=== PATIENT | female | born 1950 | race Caucasian/White ===

== ENCOUNTER 2024-10-07 15:28 | Inpatient (IN) | payer MEDICARE ==
[~2024-10-07] VITALS: Ht 170.2 cm; Wt 73.0 kg
--- NOTE | 2024-10-07 16:33 | ERN ---
General Chief Complaint: Mechanical Fall Stated Complaint: UNABLE TO MOVE/FELL Source: patient History of Present Illness Initial Comments Patient is a 74-year-old female with no pertinent medical history who presented to the emergency department after a fall at home about 7 days ago. She stated that she was walking around her home when she tripped and fell on her right side. She denies any loss of consciousness, dizziness or preceding symptoms. Since the fall, she has had intermittent pain to her right hip. States the pain is worse with movement and weight-bearing. She denies any head trauma, loss of consciousness, or seizure activity. No numbness, weakness or bowel or bladder incontinence. Denies any chest pain shortness of breath, or palpitations. Allergies: Coded Allergies: No Known Drug Allergies (Unverified Allergy, Unknown, 10/07/24) Past Medical History Past Medical History: No Pertinent History Past Surgical History: None ROS Dictation Constitutional: No appetite loss, No fevers, chills , No night sweats, No weakness, fatigue Eye: No vision change, No redness, pain or discharge ENT: No hearing loss, ear pain or discharge, No nose bleeds, No sore throat, Neck: No swelling. pain or stiffness Respiratory: No cough, shortness of breath, wheezing Cardiovascular: No chest pain,, palpitations, dyspnea, No edema Gastrointestinal: No abdominal pain, No nausea, vomiting, No diarrhea, constipation Genitourinary: No painful urination, No blood in urine, No urinary incontinence, No frequency or urgency Musculoskeletal: Right hip pain Neurological: No numbness, tingling, No weakness, tremors or seizures Psychiatric: : No depression, No anxiety, No sleep disturbance, No Memory changes Lymphatic: No easy bruising, No bleeding tendencies , No swollen lymph nodes A 13-point Review of Systems was assessed, all of which are negative except for HPI or as indicated above. Physical Exam Physical Exam Dictation General: Alert & Oriented, No acute distress. EENT: No conjunctival redness or discharge noted Tympanic membranes are clear, Normal hearing, Oral mucosa is moist, No pharyngeal erythema, No nasal discharge, No oral lesions. Neck: Non-tender, No jugular vein distention, No lymphadenopathy, No thyromegaly, Supple. Respiratory: Lungs are clear to auscultation, Respirations are non-labored, Breath sounds are equal, No chest wall tenderness, _. Cardiovascular: Normal rate, Normal rhythm, No murmur, Good pulses equal in all extremities, Normal peripheral perfusion, No edema. Gastrointestinal: Soft, Non-tender, Non-distended, Normal bowel sounds, No organomegaly, _. Musculoskeletal: Normal range of motion, Normal strength, No tenderness, No swelling, No deformity, Integumentary: Warm, Dry, [place], Intact, No pallor, No rash. Neurologic: Alert, Oriented x4, Normal sensory, No focal defects Psychiatric: Cooperative, Appropriate mood & affect, Normal judgement, Non- suicidal. Results EKG/XRAY/US/CT/MRI X-RAY Comment PATIENT: HERMINIA HUANG MR#: [id number] : 1950 SEX: F AGE: 74 LOCATION: [facility] ORDER 51 STATUS: [facility] REPORT#: [id number] SERVICE 49 REASON: right hip pain ORDERING PHYSICIAN: MALOU ASHTON MD PROCEDURE: HIPS B 2V - HIP BILAT 2VW HIP BILAT 2VW HISTORY: Hip pain COMPARISON: None TECHNIQUE: 2 images of bilateral hips were obtained. FINDINGS: There is no acute displaced fracture or dislocation. Bilateral hip joint space narrowing is seen. Degenerative changes are seen. IMPRESSION: 1. Findings as described above. DICTATED BY: WENDY GRIGGS MD DATE: 10/07/241721 ELECTRONICALLY SIGNED BY: WENDY GRIGGS MD DATE: 10/07/241725 [facility] Potential differential diagnoses include: *Osteoarthritis * Failure to thrive *Fall Assessment: I will order an xray of bilateral hips in order to rule out any fractures or dislocation and we will administer medications according to the patient's complaint. .. I will re-evaluate the patient after treatment and diagnostic exams have returned to determine whether they require further testing, can be safely discharged home, or need admission for further treatment and evaluation. Given the social determinants of health affecting care, including literacy, access to medical care, prescription drug management, and [id number] drugs, I will ensure that treatment plans are tailored accordingly. Revaluation : Patient is alert and oriented. States she feels a lot better Xray of hips shows that there is no acute displaced fracture or dislocation. Bilateral hip joint space narrowing is seen. Degenerative changes also seen.. Disposition:Patient was due to be discharged, however patient's family refused to pick her up. Spoke to ROADS AND PARKING LOTS SWEEPER OPERATOR Drea for the hospitalist group, will admit the patient for failure to thrive. Attestation: Patient's case was discussed with the ER MD. Reviewed the documentation, medical decision making and treatment plan. Agrees with the findings and plan of care. ED Course Orders Procedure Category Date Status Time Hip Bilat 2vw RAD 10/07/24 Resulted 15:50 *General Dc DS 10/07/24 Transmitted Instructions 18:11 Vital Signs Date Time Temp Pulse Resp B/P (MAP) Pulse Ox O2 Delivery O2 Flow Rate FiO2 10/07/24 17:03 98.2 61 20 122/102 99 Room Air* 0 21 10/07/24 15:32 98.2 61 20 122/102 99 Room Air 0 DX & DISP Disposition: Inpatient Departure Impression: Primary Impression: Osteoarthritis Additional Impression: Failure to thrive Ruled Out: Degenerative arthritis, Fall Condition: Stable Referrals: SELF,REFERRAL (PCP) I WAS PRESENT AND PARTICIPATED IN THE CARE OF THIS PATIENT ALONGSIDE WITH THE RESIDENT PHYSICIAN. I HAVE REVIEWED AND PERSONALLY MADE AND APPROVED THE MANAGEMENT PLAN THAT IS DOCUMENTED IN THE NOTE BY MYSELF WITH THE RESIDENT PHYSICIAN. I ACKNOWLEDGED FOR RESPONSIBILITY FOR THE PATIENT'S MANAGEMENT PLAN. MALOU ASHTON MD Oct 07, 2024 16:33 MALLORIE CHAVEZ MD Oct 10, 2024 08:26
--- NOTE | 2024-10-07 17:26 | HMCIMG ---
HIP BILAT 2VW HISTORY: Hip pain COMPARISON: None TECHNIQUE: 2 images of bilateral hips were obtained. FINDINGS: There is no acute displaced fracture or dislocation. Bilateral hip joint space narrowing is seen. Degenerative changes are seen. IMPRESSION: 1. Findings as described above.
--- NOTE | 2024-10-07 19:00 | NUR ---
REPORT CALLED TO IFEANYI APS ID [id number], REPORT ID [id number] BROTHER ROSA HUANG [facility] [phone] LISA WALTONROMIE [facility] [phone] PT [id number] [facility] [id number] PT LEFT IN ER AND SHMUEL GONZALEZ STATED SHE WAS NOT WILLING TO TAKE PT BACK WITH HER, BROTHER ROSA CALLED ER AND ALSO STATED HE DID NOT WANT TO DIAMOND SAW OPERATOR PT
--- NOTE | 2024-10-07 19:00 | NUR ---
PATIENT BROUGHT TO ED 1
--- NOTE | 2024-10-07 19:07 | NUR ---
NELA JIMÉNEZ CELLAR SUPERVISOR WITH ADMITTING GROUP AT [facility] TO EVALUATE PATIENT
--- NOTE | 2024-10-07 19:46 | HP ---
[facility] HISTORY AND PHYSICAL Date of Service: Oct 07, 2024 Time of Service: 19:17 PCP:Self Referral HISTORY OF PRESENT ILLNESS: This is a 74 year old female with no pertinent medical and surgical history who lives alone and was brought by family to the ED for evaluation of fall at home which happened 1 week ago.Patient is a reliable historian.Patient reports she fell last Monday 1 week ago as she was about to sit in a box and she miscalculated it she end up falling on her buttocks and shewas not able to move to get up because of pain .She has been outside her house for the past 5 days without food or drink because she has nobody at home and her phone ran out of battery and there was no means of communication until her brother showed up and checked on her she said and helped her get up.Patient reports she has right hip pain because of the recent fall but did not seek medical help instead she uses the wheelchair her brother gave her she said.Until today she decided to be checked .Upon ER arrival ,patient underwent a bilateral hip Xray and result revealed no acute displaced fracture or dislocation. Lateral hip joint space narrowing is seen. Degenerative changes are seen and patient was supposed to be discharged home however family refused to pick her up and reportedly patient has a poor living condition.Adult protective service was contacted per primary nurse and ER MD called and recommended to admit the patient. Seen and examined patient in the ER awake,alert and coherent.Patient complained of soreness on her right hip.Patient denies fever,chills,nausea,vomiting ,chest pain,palpitation,cough and shortness of breath.Patient reports no loss of consciousness,no numbness,no seizure,no dizziness and no headache.Patient is able to follow commands and moves all extremities. Latest vital signs temperature 98.2, heart rate 61, respiration 20, blood pressure 122/102 and saturation 99% on room air.No labs taken at this time.Will admit patient for further medical management. REVIEW OF SYSTEMS CONSTITUTIONAL: Denies fevers, chills, or night sweats. No unintentional weight loss reported. NEUROLOGICAL: Denies headache, amaurosis fugax, motor weakness, sensory deficit, vertigo/spinning sensation, gait abnormalities, or tremors. ENT: No hearing loss, otalgia, otorrhea, rhinitis, rhinorrhea, hoarseness, or sore throat. CARDIOVASCULAR: Denies any exertional angina, dyspnea on exertion, orthopnea, paroxysmal nocturnal dyspnea, palpitations, life-threatening arrhythmias, claudication. PULMONARY: Denies any shortness of breath, cough, phlegm/sputum, hemoptysis, pleuritic chest pain. SLEEP: Denies morning headaches, daytime somnolence or napping. Denies difficulty falling asleep, staying asleep, waking from sleep. Denies knowledge of snoring. GASTROINTESTINAL: Denies any type of dysphagia to either liquids or solids. Denies nausea, vomiting, pyrosis, early satiety, abdominal pain, diarrhea, constipation, or changes in stool consistency or caliber. Denies coffee-ground emesis, hematemesis, hematochezia, or melanotic stools. GENITOURINARY: Denies frequency, urgency, nocturia, hematuria or incontinence (Storage/Irritative symptoms.) Low urinary stream, straining to void, urinary intermittency or hesitancy, splitting of the voiding stream, terminal dribbling. ENDOCRINOLOGIC: Denies polyuria, polydipsia, polyphagia or heat/cold intolerances. HEMATOLOGIC: Denies thrombophilia/previous clots, or coagulopathy/bleeding disorders. ONCOLOGIC: Denies personal history of malignancy. DERMATOLOGIC: Denies rashes or pruritus. PSYCHIATRIC: Denies any suicidal or homicidal ideation. Denies hallucinations. PAST MEDICAL HISTORY: [ Patient denies ] PAST SURGICAL HISTORY: [ Patient denies ] PAST SOCIAL HISTORY: [ Patient lives alone. Patient denies alcohol tobacco and recreational drug use ] FAMILY HISTORY: [ Noncontributory ] Coded Allergies: No Known Drug Allergies (Unverified Allergy, Unknown, 10/07/24) PHYSICAL EXAM GENERAL APPEARANCE: The patient is awake, alert, and oriented, in no acute cardiopulmonary distress. NEUROLOGICAL: Cranial nerves II-XII grossly intact. Motor is 5/5 in bilateral upper and lower extremities proximal to distal. No sensory deficits. HEENT: Face is symmetric. Pupils are equal and reactive. Extraocular movements are intact. NECK: Supple. No JVD. No thyromegaly. No submental, submandibular, pre- /postauricular, occipital or supraclavicular lymphadenopathy. CHEST: Normal chest expansion. No Telemetry. LUNGS: Absence of any rales, rhonchi or any wheezing. CARDIOVASCULAR: Regular. S1 and S2 normal. No appreciable rubs, murmurs or gallops. ABDOMEN: Soft, nontender, and nondistended. There is no rebound, voluntary guarding, or rigidity. : Deferred. No [place]. EXTREMITIES: Non-edematous and not cyanotic. No clubbing. Good capillary refill. SKIN: No skin breakdown. Vital Sign (Last 24 Hours) 10/07/24 17:03 Temp 98.2 Pulse 61 Resp 20 B/P (MAP) 122/102 Pulse Ox 99 O2 Delivery Room Air* O2 Flow Rate 0 FiO2 21 LABS: DIAGNOSTICS / RADIOLOGY: [ ] ASSESSMENT: Failure to thrive POA Functional debility POA Status post fall at home POA Right hip pain POA Possible osteoarthritis POA PLAN: We will admit patient in medical surgical We will start on heart healthy We will start on Famotidine 20 mg p.o. bid for GI prophylaxis We will replace electrolytes as needed per protocol We will add prn medication for fever,pain,cough and nausea We will request case management consultation We will request PT eval and treat service We will request labs in am Further orders to follow depending on above results Case discussed with attending physician and came up with above treatment and plan of care. ADVANCED CARE PLANNING 1. Which of the following were discussed? Hospice Care - No Therapeutic options - Yes Advance Directives - No Other discussions - 2. Discussed with who? Patient 3. Voluntary nature of this service was explained to the patient? Yes 4. Amount of time spent - 20 5. Reviewed by Physician? (if this service was performed by NPP) Yes Patient seen and examined by me. Agree with note by FRUIT TRIMMER SEE ADDITIONAL ORDERS PER CHART DISCUSSED WITH NURSING STAFF RAMONE WISE SHIPPING AND RECEIVING SUPERVISOR Oct 07, 2024 19:46
[2024-10-07] MEDS ORDERED: acetaMINOPHEN 325 MG TAB PO PRN ×2 (20:00)
[2024-10-07] MEDS ORDERED: ondanSETRON 4MG INJ IV PRN (20:00)
--- NOTE | 2024-10-07 20:50 | NUR ---
PATIENT REPORTS SHE DOES NOT TAKE ANY MEDICATIONS
[2024-10-07] MEDS: FAMOTIDINE 20MG TAB PO SCH (20:56)
[2024-10-07 21:01] LABS: BASOPHILS # (AUTO) 0.04 K/uL (0.00-0.20); BASOPHILS % (AUTO) 0.4 % (0.0-5.0); EOSINOPHILS # (AUTO) 0.09 K/uL (0.00-0.70); EOSINOPHILS % (AUTO) 0.9 % (0.0-8.0); HEMATOCRIT 37.5 % (36-48); IMMATURE GRANULOCYTE ABSOLUTE 0.03 K/uL (0-1); LYMPHOCYTES % (AUTO) 20.9 % (21.0-51.0); MEAN CORPUSCULAR HEMOGLOBIN 32.8 pg (27.0-33.0); MEAN CORPUSCULAR HGB CONC 33.6 g/dL (32.0-36.0); MEAN CORPUSCULAR VOLUME 97.7 fL (79-99); MONOCYTES # (AUTO) 1.1 K/uL (0.1-1.0); MONOCYTES % (AUTO) 11.4 % (3.0-13.0); NEUTROPHILS # (AUTO) 6.3 K/uL (1.8-7.7); NEUTROPHILS % (AUTO) 66.1 % (40.0-77.0); PLATELET COUNT (AUTO) 177 K/uL (130-400); RED BLOOD CELL COUNT(AUTO) 3.84 MIL/uL (4.00-5.50); RED CELL DISTRIBUTION WIDTH 13.6 % (11.0-15.5); WHITE BLOOD COUNT (AUTO) 9.6 K/uL (4.8-10.8)
[2024-10-07 21:12] LABS: CREATININE 1.1 mg/dL (0.5-1.0); POTASSIUM 3.3 mmol/L (3.5-5.1)
[2024-10-07 21:17] LABS: MAGNESIUM 1.8 mg/dL (1.80-2.40)
[2024-10-07 22:44] VITALS: BP 148/62; PULSE 74; RESP 18; TEMP 98.9
[2024-10-07 23:30] VITALS: O2SAT 18
[2024-10-08] VITALS (8 sets, daily range): BP systolic 98–133; BP diastolic 47–82; PULSE 65–85; RESP 17–18; TEMP 98–99.3; O2SAT 97–99
[2024-10-08 05:48] LABS: BASOPHILS # (AUTO) 0.06 K/uL (0.00-0.20); BASOPHILS % (AUTO) 0.8 % (0.0-5.0); EOSINOPHILS # (AUTO) 0.25 K/uL (0.00-0.70); EOSINOPHILS % (AUTO) 3.2 % (0.0-8.0); HEMATOCRIT 33.2 % (36-48); IMMATURE GRANULOCYTE ABSOLUTE 0.03 K/uL (0-1); LYMPHOCYTES # (AUTO) 2.9 K/uL (1.0-4.8); LYMPHOCYTES % (AUTO) 37.2 % (21.0-51.0); MEAN CORPUSCULAR HEMOGLOBIN 32.4 pg (27.0-33.0); MEAN CORPUSCULAR HGB CONC 33.1 g/dL (32.0-36.0); MEAN CORPUSCULAR VOLUME 97.6 fL (79-99); MONOCYTES % (AUTO) 13.1 % (3.0-13.0); NEUTROPHILS # (AUTO) 3.5 K/uL (1.8-7.7); NEUTROPHILS % (AUTO) 45.3 % (40.0-77.0); PLATELET COUNT (AUTO) 141 K/uL (130-400); RED CELL DISTRIBUTION WIDTH 13.7 % (11.0-15.5); WHITE BLOOD COUNT (AUTO) 7.8 K/uL (4.8-10.8)
[2024-10-08 06:05] LABS: ALBUMIN 2.7 g/dL (3.5-5.0); BILIRUBIN,TOTAL 0.4 mg/dL (0.2-1.0); CREATININE 0.9 mg/dL (0.5-1.0); MAGNESIUM 1.8 mg/dL (1.80-2.40); TOTAL PROTEIN, SERUM 6.1 g/dL (6.0-8.3)
[2024-10-08 06:56] LABS: ERYTHROCYTE SEDIMENTATION RATE 25 MM/HR (0-30)
--- NOTE | 2024-10-08 09:57 | PN ---
[facility] PROGRESS NOTE Date of Service: Oct 08, 2024 Time of Service: 09:47 SUBJECTIVE: [ ] Patient seen and examined in room 425 Today at bedside evaluation patient is found alert and oriented x3. Continue fall precautions. Latest vital signs and labs are stable. Patient is a start working with physical therapy for safe discharge planning. Consulting dietitian in reference to severe protein malnutrition. Discussed with primary nurse REVIEW OF SYSTEMS CONSTITUTIONAL: Denies fevers, chills, or night sweats. No unintentional weight loss reported. NEUROLOGICAL: Denies headache, amaurosis fugax, motor weakness, sensory deficit, vertigo/spinning sensation, gait abnormalities, or tremors. ENT: No hearing loss, otalgia, otorrhea, rhinitis, rhinorrhea, hoarseness, or sore throat. CARDIOVASCULAR: Denies any exertional angina, dyspnea on exertion, orthopnea, paroxysmal nocturnal dyspnea, palpitations, life-threatening arrhythmias, claudication. PULMONARY: Denies any shortness of breath, cough, phlegm/sputum, hemoptysis, pleuritic chest pain. SLEEP: Denies morning headaches, daytime somnolence or napping. Denies difficulty falling asleep, staying asleep, waking from sleep. Denies knowledge of snoring. GASTROINTESTINAL: Denies any type of dysphagia to either liquids or solids. Denies nausea, vomiting, pyrosis, early satiety, abdominal pain, diarrhea, constipation, or changes in stool consistency or caliber. Denies coffee-ground emesis, hematemesis, hematochezia, or melanotic stools. GENITOURINARY: Denies frequency, urgency, nocturia, hematuria or incontinence (Storage/Irritative symptoms.) Low urinary stream, straining to void, urinary intermittency or hesitancy, splitting of the voiding stream, terminal dribbling. ENDOCRINOLOGIC: Denies polyuria, polydipsia, polyphagia or heat/cold intolerances. HEMATOLOGIC: Denies thrombophilia/previous clots, or coagulopathy/bleeding disorders. ONCOLOGIC: Denies personal history of malignancy. DERMATOLOGIC: Denies rashes or pruritus. PSYCHIATRIC: Denies any suicidal or homicidal ideation. Denies hallucinations. PHYSICAL EXAM GENERAL APPEARANCE: The patient is awake, alert, and oriented, in no acute cardiopulmonary distress. NEUROLOGICAL: Cranial nerves II-XII grossly intact. Motor is 5/5 in bilateral upper and lower extremities proximal to distal. No sensory deficits. HEENT: Face is symmetric. Pupils are equal and reactive. Extraocular movements are intact. NECK: Supple. No JVD. No thyromegaly. No submental, submandibular, pre- /postauricular, occipital or supraclavicular lymphadenopathy. CHEST: Normal chest expansion. No Telemetry. LUNGS: Absence of any rales, rhonchi or any wheezing. CARDIOVASCULAR: Regular. S1 and S2 normal. No appreciable rubs, murmurs or gallops. ABDOMEN: Soft, nontender, and nondistended. There is no rebound, voluntary guarding, or rigidity. : Deferred. No [place]. EXTREMITIES: Non-edematous and not cyanotic. No clubbing. Good capillary refill. SKIN: No skin breakdown. Vital Signs (last 8hr) Date Time Temp Pulse Resp B/P (MAP) Pulse Ox O2 Delivery O2 Flow Rate FiO2 10/08/24 07:30 98.1 65 18 133/50 99 Room Air 21 10/08/24 04:25 98.4 76 18 106/64 99 Room Air 21 LABS: Laboratory: Test 10/08/24 05:30 10/07/24 20:30 Range/Units White Blood Count 7.8 4.8-10.8 K/uL Red Blood Count 3.40 L 4.00-5.50 MIL/uL Hemoglobin 11.0 L 12.0-16.0 g/dL Hematocrit 33.2 L 36-48 % Mean Corpuscular Volume 97.6 79-99 fL Mean Corpuscular Hemoglobin 32.4 27.0-33.0 pg Mean Corpuscular Hemoglobin Concent 33.1 32.0-36.0 g/dL Red Cell Distribution Width 13.7 11.0-15.5 % Platelet Count 141 130-400 K/uL Mean Platelet Volume 10.8 H 7.5-10.5 fL Immature Granulocyte % (Auto) 0.4 0-1 % Neutrophils (%) (Auto) 45.3 40.0-77.0 % Lymphocytes (%) (Auto) 37.2 21.0-51.0 % Monocytes (%) (Auto) 13.1 H 3.0-13.0 % Eosinophils (%) (Auto) 3.2 0.0-8.0 % Basophils (%) (Auto) 0.8 0.0-5.0 % Neutrophils # (Auto) 3.5 1.8-7.7 K/uL Lymphocytes # (Auto) 2.9 1.0-4.8 K/uL Monocytes # (Auto) 1.0 0.1-1.0 K/uL Eosinophils # (Auto) 0.25 0.00-0.70 K/uL Basophils # (Auto) 0.06 0.00-0.20 K/uL Absolute Immature Granulocyte (auto 0.03 0-1 K/uL Nucleated Red Blood Cells 0.0 0.0-0.19 % Erythrocyte Sedimentation Rate 25 0-30 MM/HR Sodium Level 140 136-145 mmol/L Potassium Level 4.0 3.5-5.1 mmol/L Chloride Level 103 101-111 mmol/L Carbon Dioxide Level 35 H 21-32 mmol/L Blood Urea Nitrogen 19 H 7-18 mg/dL Creatinine 0.9 0.5-1.0 mg/dL Glomerular Filtration Rate Calc 67 >90 mL/min Random Glucose 90 70-105 mg/dL Total Calcium 8.6 8.5-10.1 mg/dL Magnesium Level 1.80 1.80-2.40 mg/dL Total Bilirubin 0.4 0.2-1.0 mg/dL Aspartate Amino Transf (AST/SGOT) 20 10-37 U/L Alanine Aminotransferase (ALT/SGPT) 20 12-78 U/L Alkaline Phosphatase 59 50-136 U/L Total Protein 6.1 6.0-8.3 g/dL Albumin 2.7 L 3.5-5.0 g/dL Total Creatine Kinase 112 21-232 U/L Current Medications Medications (Trade) Dose Ordered Sig/Davon Route PRN Reason Start Time Stop Time Status Last Admin Dose Admin Acetaminophen (TYLenol 325MG TAB) 650 mg Q4H PRN PO MILD PAIN (1-3) 10/07/24 20:00 11/06/24 19:59 Acetaminophen (TYLenol 325MG TAB) 650 mg Q6H PRN PO TEMPERATURE GREATER THAN 101.5 10/07/24 20:00 11/06/24 19:59 Famotidine (Pepcid 20mg Tab) 20 mg BID PO 10/07/24 21:00 11/06/24 20:59 10/07/24 20:56 20 MG Ondansetron HCl (zoFRAN 4MG INJ) 4 mg Q6H PRN IV NAUSEA/VOMITING 10/07/24 20:00 11/06/24 19:59 DIAGNOSTICS / RADIOLOGY: [ ] ASSESSMENT: Intractable right hip pain s/p fall, POA Functional decline secondary to above, POA Severe protein calorie malnutrition, POA Debility/frailty/deconditioning Failure to thrive POA osteoarthritis, POA PLAN: Continue admission in the medical-surgical floor Continue heart healthy diet Consulting Physical therapy for safe discharge planning In reference to severe protein calorie malnutrition: Consulting dietitian Monitoring replace electrolytes per hospital protocol Case management consulted for discharge planning Pending urinalysis Monitor a.m. labs PRN Treatment - Add when necessary meds for nausea, vomiting, pain, constipation, insomnia. DVT/GI prophylaxis- Continue Lovenox and famotidine at current doses. Full CODE STATUS This document was generated in part using voice recognition software, occasional wrong word or sound alike substitutions may have occurred due to the inherent limitations of voice recognition software. Read the chart carefully and recognize using context, where the substitutions have occurred. Although every effort was made to edit the content, regulatory manager and typing errors may occur This case was discussed with Dr. Sims and above plan was formulated ATTESTATION BY PHYSICIAN I have seen and examined the patient. I reviewed the documentation, medical decision making, and treatment plan as noted by the mid-level provider above. I agree with the findings and plan of care. Heather Sims MD, MARCELO O APRN Oct 08, 2024 09:57
[2024-10-08] MEDS ORDERED: hydrALAZine 20MG/ML VIAL IV PRN (10:00)
[2024-10-08] MEDS ORDERED: LACTULOSE 20 GM/30 ML UDCUP PO PRN (10:00)
--- NOTE | 2024-10-08 18:27 | NUR ---
DCP Pt awake, alert, oriented x3 lives alone in her house, never . pt verbalized has a cane, has not had home health in the past or been to longterm facility. Pt verbalized she spoke with APS farmworker cranberry Ashley Givens [phone]. Anticipates discharge is SNF vs Home. Order received to work on longterm facility for physical therapy pt would not sign medical release of information until tomorrow morning 10/09/2024 Addendum: 10/08/24 at 1831 by CELIO BERGMAN RN CM Amended: Links added.
[2024-10-09 03:26] VITALS: BP 113/62; PULSE 66; RESP 17; TEMP 98.6
[2024-10-09 06:12] LABS: BASOPHILS # (AUTO) 0.05 K/uL (0.00-0.20); BASOPHILS % (AUTO) 0.8 % (0.0-5.0); EOSINOPHILS # (AUTO) 0.21 K/uL (0.00-0.70); EOSINOPHILS % (AUTO) 3.2 % (0.0-8.0); HEMATOCRIT 33.7 % (36-48); IMMATURE GRANULOCYTE ABSOLUTE 0.02 K/uL (0-1); LYMPHOCYTES # (AUTO) 2.4 K/uL (1.0-4.8); LYMPHOCYTES % (AUTO) 36.6 % (21.0-51.0); MEAN CORPUSCULAR HGB CONC 32.9 g/dL (32.0-36.0); MEAN CORPUSCULAR VOLUME 97.1 fL (79-99); MONOCYTES # (AUTO) 0.9 K/uL (0.1-1.0); MONOCYTES % (AUTO) 13.7 % (3.0-13.0); NEUTROPHILS % (AUTO) 45.4 % (40.0-77.0); PLATELET COUNT (AUTO) 145 K/uL (130-400); RED BLOOD CELL COUNT(AUTO) 3.47 MIL/uL (4.00-5.50); RED CELL DISTRIBUTION WIDTH 13.5 % (11.0-15.5); WHITE BLOOD COUNT (AUTO) 6.6 K/uL (4.8-10.8)
[2024-10-09 06:22] LABS: CREATININE 0.8 mg/dL (0.5-1.0); POTASSIUM 3.7 mmol/L (3.5-5.1)
[2024-10-09 07:30] VITALS: BP 96/51; PULSE 78; RESP 20; TEMP 98
[2024-10-09 07:40] VITALS: O2SAT 99
--- NOTE | 2024-10-09 08:22 | PN ---
[facility] PROGRESS NOTE Date of Service: Oct 09, 2024 Time of Service: 08:21 SUBJECTIVE: [ ] 74-year-old female with no significant past medical history was admitted to the telemetry floor with diagnosis of intractable right hip pain s/p fall, functional decline and severe protein calorie malnutrition. Hip x-rays are not showing any acute fractures or dislocations. Physical therapy was consulted for safe discharge planning. Patient lives at home alone. Today on bedside evaluation patient was found awake alert and oriented x 3. Latest vitals are stable. Labs are stable. Patient continues to work with physical therapy. Using walker for mobility. Continue fall precautions. Continue heart healthy diet. Case management is coordinating for SNF placement for continued physical therapy. Discussed with primary nurse REVIEW OF SYSTEMS CONSTITUTIONAL: Denies fevers, chills, or night sweats. No unintentional weight loss reported. NEUROLOGICAL: Denies headache, amaurosis fugax, motor weakness, sensory deficit, vertigo/spinning sensation, gait abnormalities, or tremors. ENT: No hearing loss, otalgia, otorrhea, rhinitis, rhinorrhea, hoarseness, or sore throat. CARDIOVASCULAR: Denies any exertional angina, dyspnea on exertion, orthopnea, paroxysmal nocturnal dyspnea, palpitations, life-threatening arrhythmias, claudication. PULMONARY: Denies any shortness of breath, cough, phlegm/sputum, hemoptysis, pleuritic chest pain. SLEEP: Denies morning headaches, daytime somnolence or napping. Denies difficulty falling asleep, staying asleep, waking from sleep. Denies knowledge of snoring. GASTROINTESTINAL: Denies any type of dysphagia to either liquids or solids. Denies nausea, vomiting, pyrosis, early satiety, abdominal pain, diarrhea, constipation, or changes in stool consistency or caliber. Denies coffee-ground emesis, hematemesis, hematochezia, or melanotic stools. GENITOURINARY: Denies frequency, urgency, nocturia, hematuria or incontinence (Storage/Irritative symptoms.) Low urinary stream, straining to void, urinary intermittency or hesitancy, splitting of the voiding stream, terminal dribbling. ENDOCRINOLOGIC: Denies polyuria, polydipsia, polyphagia or heat/cold intolerances. HEMATOLOGIC: Denies thrombophilia/previous clots, or coagulopathy/bleeding disorders. ONCOLOGIC: Denies personal history of malignancy. DERMATOLOGIC: Denies rashes or pruritus. PSYCHIATRIC: Denies any suicidal or homicidal ideation. Denies hallucinations. PHYSICAL EXAM GENERAL APPEARANCE: The patient is awake, alert, and oriented, in no acute cardiopulmonary distress. NEUROLOGICAL: Cranial nerves II-XII grossly intact. Motor is 5/5 in bilateral upper and lower extremities proximal to distal. No sensory deficits. HEENT: Face is symmetric. Pupils are equal and reactive. Extraocular movements are intact. NECK: Supple. No JVD. No thyromegaly. No submental, submandibular, pre- /postauricular, occipital or supraclavicular lymphadenopathy. CHEST: Normal chest expansion. No Telemetry. LUNGS: Absence of any rales, rhonchi or any wheezing. CARDIOVASCULAR: Regular. S1 and S2 normal. No appreciable rubs, murmurs or gallops. ABDOMEN: Soft, nontender, and nondistended. There is no rebound, voluntary guarding, or rigidity. : Deferred. No Arauz. EXTREMITIES: Non-edematous and not cyanotic. No clubbing. Good capillary refill. SKIN: No skin breakdown. Vital Signs (last 8hr) Date Time Temp Pulse Resp B/P (MAP) Pulse Ox O2 Delivery O2 Flow Rate FiO2 10/09/24 07:30 98.1 78 20 96/51 99 Room Air 21 10/09/24 03:26 98.6 66 17 113/62 96 Room Air 21 LABS: Laboratory: Test 10/09/24 05:47 10/08/24 05:30 10/07/24 20:30 Range/Units White Blood Count 6.6 4.8-10.8 K/uL Red Blood Count 3.47 L 4.00-5.50 MIL/uL Hemoglobin 11.1 L 12.0-16.0 g/dL Hematocrit 33.7 L 36-48 % Mean Corpuscular Volume 97.1 79-99 fL Mean Corpuscular Hemoglobin 32.0 27.0-33.0 pg Mean Corpuscular Hemoglobin Concent 32.9 32.0-36.0 g/dL Red Cell Distribution Width 13.5 11.0-15.5 % Platelet Count 145 130-400 K/uL Mean Platelet Volume 10.8 H 7.5-10.5 fL Immature Granulocyte % (Auto) 0.3 0-1 % Neutrophils (%) (Auto) 45.4 40.0-77.0 % Lymphocytes (%) (Auto) 36.6 21.0-51.0 % Monocytes (%) (Auto) 13.7 H 3.0-13.0 % Eosinophils (%) (Auto) 3.2 0.0-8.0 % Basophils (%) (Auto) 0.8 0.0-5.0 % Neutrophils # (Auto) 3.0 1.8-7.7 K/uL Lymphocytes # (Auto) 2.4 1.0-4.8 K/uL Monocytes # (Auto) 0.9 0.1-1.0 K/uL Eosinophils # (Auto) 0.21 0.00-0.70 K/uL Basophils # (Auto) 0.05 0.00-0.20 K/uL Absolute Immature Granulocyte (auto 0.02 0-1 K/uL Nucleated Red Blood Cells 0.0 0.0-0.19 % Sodium Level 144 136-145 mmol/L Potassium Level 3.7 3.5-5.1 mmol/L Chloride Level 106 101-111 mmol/L Carbon Dioxide Level 32 21-32 mmol/L Blood Urea Nitrogen 20 H 7-18 mg/dL Creatinine 0.8 0.5-1.0 mg/dL Glomerular Filtration Rate Calc 77 >90 mL/min Random Glucose 91 70-105 mg/dL Total Calcium 8.6 8.5-10.1 mg/dL Erythrocyte Sedimentation Rate 25 0-30 MM/HR Magnesium Level 1.80 1.80-2.40 mg/dL Total Bilirubin 0.4 0.2-1.0 mg/dL Aspartate Amino Transf (AST/SGOT) 20 10-37 U/L Alanine Aminotransferase (ALT/SGPT) 20 12-78 U/L Alkaline Phosphatase 59 50-136 U/L Total Protein 6.1 6.0-8.3 g/dL Albumin 2.7 L 3.5-5.0 g/dL Total Creatine Kinase 112 21-232 U/L Current Medications Medications (Trade) Dose Ordered Sig/Davon Route PRN Reason Start Time Stop Time Status Last Admin Dose Admin Acetaminophen (TYLenol 325MG TAB) 650 mg Q4H PRN PO MILD PAIN (1-3) 10/07/24 20:00 11/06/24 19:59 Acetaminophen (TYLenol 325MG TAB) 650 mg Q6H PRN PO TEMPERATURE GREATER THAN 101.5 10/07/24 20:00 11/06/24 19:59 Enoxaparin Sodium (Lovenox) 40 mg DAILY SQ 10/09/24 09:00 11/08/24 08:59 Famotidine (Pepcid 20mg Tab) 20 mg BID PO 10/07/24 21:00 11/06/24 20:59 10/07/24 20:56 20 MG Hydralazine HCl (APRESOLine 20MG INJ) 5 mg Q6H PRN IV ADMINISTER FOR SBP > 160 10/08/24 10:00 11/07/24 09:59 Lactulose (Constulose 20gm/ 30ml Udcup) 20 gm BID PRN PO CONSTIPATION 10/08/24 10:00 11/07/24 09:59 Ondansetron HCl (zoFRAN 4MG INJ) 4 mg Q6H PRN IV NAUSEA/VOMITING 10/07/24 20:00 11/06/24 19:59 DIAGNOSTICS / RADIOLOGY: [ ] ASSESSMENT: Intractable right hip pain s/p fall, POA Functional decline secondary to above, POA Severe protein calorie malnutrition, POA Debility/frailty/deconditioning Failure to thrive POA osteoarthritis, POA PLAN: Continue admission in the medical-surgical floor Continue heart healthy diet Consulting Physical therapy for safe discharge planning In reference to severe protein calorie malnutrition: Following dietitian recommendations Monitoring replace electrolytes per hospital protocol Case management consulted for discharge planning Pending urinalysis Monitor a.m. labs PRN Treatment - Add when necessary meds for nausea, vomiting, pain, constipation, insomnia. DVT/GI prophylaxis- Continue Lovenox at current doses. Full CODE STATUS This document was generated in part using voice recognition software, occasional wrong word or sound alike substitutions may have occurred due to the inherent limitations of voice recognition software. Read the chart carefully and recogn ize using context, where the substitutions have occurred. Although every effort was made to edit the content, associate professor of pathology and typing errors may occur I have seen and evaluated the patient alongside the nurse practitioner/physician child development assistant. I agree with the assessment and plan as above. DEEPIKA PETTIT APRN Oct 09, 2024 08:22 CORBY CHOUDHARY IV, MD Oct 09, 2024 13:25
[2024-10-09] MEDS: ENOXAPARIN SODIUM 40 MG/0.4 ML SYRINGE SQ SCH (08:37)
[2024-10-09 11:52] VITALS: BP 119/74; PULSE 83; RESP 20; TEMP 98.3
[2024-10-09 15:40] VITALS: BP 105/63; PULSE 68; RESP 20; TEMP 98.2
[2024-10-09 20:00] VITALS: BP 97/50; PULSE 71; RESP 18; TEMP 98.6; O2SAT 98
[2024-10-10] VITALS: BP 115/58; PULSE 70; RESP 19; TEMP 98.4
[2024-10-10 03:36] VITALS: O2SAT 96
[2024-10-10 03:56] LABS: HEMATOCRIT 32.9 % (36-48); MEAN CORPUSCULAR HEMOGLOBIN 31.8 pg (27.0-33.0); MEAN CORPUSCULAR HGB CONC 32.2 g/dL (32.0-36.0); MEAN CORPUSCULAR VOLUME 98.8 fL (79-99); RED BLOOD CELL COUNT(AUTO) 3.33 MIL/uL (4.00-5.50); RED CELL DISTRIBUTION WIDTH 13.6 % (11.0-15.5); WHITE BLOOD COUNT (AUTO) 7.9 K/uL (4.8-10.8)
[2024-10-10 04:00] VITALS: BP 110/45; PULSE 63; RESP 18; TEMP 98.1
[2024-10-10 04:23] LABS: POTASSIUM 3.5 mmol/L (3.5-5.1)
[2024-10-10 08:00] VITALS: BP 100/41; PULSE 66; RESP 19; TEMP 99.1; O2SAT 97
--- NOTE | 2024-10-10 08:04 | DS ---
Discharge Summary Hospital Course Summary: 74-year-old female with no significant past medical history was admitted to the telemetry floor with diagnosis of intractable right hip pain s/p fall, functional decline and severe protein calorie malnutrition. Hip x-rays are not showing any acute fractures or dislocations. Physical therapy was consulted for safe discharge planning. Patient lives at home alone. Today on bedside evaluation patient was found awake alert and oriented x 3. The power chart reviewed, vital signs, laboratory tests, imaging test and medications have been reviewed. No incidences reported overnight. Latest vital signs and labs are stable. Continues to work with physical therapy. Continuous heart healthy diet. Physical therapy recommendations for safe discharge planning are for detention facility. Patient agrees with recommendations. Case management coordinated for detention facility. From medical standpoint patient is stable and cleared for discharge. Assessment/Plan: ASSESSMENT: Intractable right hip pain s/p fall, POA improved Functional decline secondary to above, POA Severe protein calorie malnutrition, POA Debility/frailty/deconditioning Failure to thrive POA osteoarthritis, POA PLAN: Continue admission in the medical-surgical floor Continue heart healthy diet Consulting Physical therapy for safe discharge planning, recommended continued physical therapy at detention facility In reference to severe protein calorie malnutrition: Following dietitian recommendations Monitoring replace electrolytes per hospital protocol Case management consulted for discharge planning, coordinating for detention facility as recommended by Physical therapy Pending urinalysis Monitor a.m. labs PRN Treatment - Add when necessary meds for nausea, vomiting, pain, constipation, insomnia. DVT/GI prophylaxis- Continue Lovenox at current doses. Full CODE STATUS This document was generated in part using voice recognition software, occasional wrong word or sound alike substitutions may have occurred due to the inherent limitations of voice recognition software. Read the chart carefully and recognize using context, where the substitutions have occurred. Although every effort was made to edit the content, chain maker and typing errors may occur Discharge Instructions: Medically cleared for discharge. Follow up with PCP in 2-3 days for continued evaluation. Continue current medications. Continue to work with physical therapy. This case was discussed with Dr. Correa and above plan was formulated Time spent arranging discharge: 31-60 minutes DEEPIKA PETTIT APRN Oct 10, 2024 08:04
--- NOTE | 2024-10-10 11:40 | NUR ---
REPORT REPORT CALLED AND GIVEN TO CHYNA CHURCH FROM [facility]. 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
[2024-10-10 12:00] VITALS: BP 92/57; PULSE 96; RESP 19; TEMP 98.1
--- NOTE | 2024-10-10 12:44 | NUR ---
discharge Patient discharged to [facility] at this time. Patient currently denied having any pain or discomfort.
--- NOTE | 2024-10-10 14:20 | NUR ---
patient d/c before RD could assess Addendum: 10/10/24 at [address] Amended: Links added.
== END 2024-10-10 12:45 | DRG 553 ==
LOC: EDH 15:28 → EDHIP 19:46 → 4DH 21:58
PROVIDERS: ADMIT Internal Medicine; ATTEND Internal Medicine
DX: M16.11 Unilateral primary osteoarthritis, right hip (principal); E43 Unspecified severe protein-calorie malnutrition; W01.0XXA Fall on same level from slipping, tripping and stumbling without subsequent striking against object, initial encounter; R54 Age-related physical debility; R62.7 Adult failure to thrive; Y93.01 Activity, walking, marching and hiking; Y92.89 Other specified places as the place of occurrence of the external cause; Y99.8 Other external cause status; Z68.25 Body mass index [BMI] 25.0-25.9, adult; Z79.899 Other long term (current) drug therapy
CPT/HCPCS: 36415; 73521; 80048; 80053; 82550; 83735; 85025; 85027; 85651; 99285; G0378; J1650